=== PATIENT | male | born 1990 | race Caucasian/White ===

== ENCOUNTER 2016-09-01 20:53 | Emergency (ER) | END 2016-09-02 01:46 | disposition home or self-care (01) | DX: S61.452A Open bite of left hand, initial encounter (principal); J45.909 Unspecified asthma, uncomplicated; F17.210 Nicotine dependence, cigarettes, uncomplicated; W54.0XXA Bitten by dog, initial encounter; Y92.9 Unspecified place or not applicable; Z23 Encounter for immunization | CPT/HCPCS: 73130; 90471; 90715; Z7502; Z7610 ==

== ENCOUNTER 2017-02-21 18:00 | Emergency (ER) | END 2017-02-21 21:15 | disposition home or self-care (01) ==

== ENCOUNTER 2017-06-03 00:06 | Emergency (ER) | END 2017-06-03 05:06 | disposition left against medical advice (07) ==